=== PATIENT | male | born 1975 | race Caucasian/White ===

== ENCOUNTER 2017-09-24 07:08 | Emergency (ER) | payer OTHER ==
[~2017-09-24] VITALS: Ht 185.4 cm; Wt 121.5 kg
[2017-09-24 07:16] VITALS: BP 132/92; PULSE 116; RESP 18; TEMP 99; O2SAT 96
[2017-09-24] MEDS ORDERED: CLINDAMYCIN PHOS 300 MG/2 ML VIAL IM ONE (07:30)
--- NOTE | 2017-09-24 07:45 | PD ---
HPI Chief Complaint: Bite or Sting Time Seen by Provider: 07:26 Travel History International Travel<30 days: No Contact w/Intl Traveler<30days: No Traveled to known affect area: No History of Present Illness HPI Patient states that while he was playfully interacting with his puppy that dog inadvertently bit his right hand, the dog did not hold onto the bite, mainly affecting his right hand. This is the patient's own dog, who is up-to-date with all the shots. Patient states that he recalls getting a tetanus shot about 3 years ago as well. Patient states that he is able to move all his digits well on that right hand, does not have any tingling sensation or any major limitation to range of motion. Patient does have some slight bleeding from the wound, which seems to stop with just slight pressure placed on it. Patient denies any associated factors such as extremity deformity, pumping bleeding, numbness to digits, or inability to move his fourth and fifth digits in particular. States allergy to penicillin/hives Patient states medical history significant for hypercholesterolemia, hypertension however takes no medications, states that its Fully diet controlled. PFSH Social History Tobacco Use: No Allergies-Medications (Allergen,Severity, Reaction): Coded Allergies: Penicillins (Verified Allergy, Severe, Anaphylaxis, 09/24/17) No Known Allergies (Verified Allergy, Unknown, 09/24/17) Reported Meds & Prescriptions Reported Meds & Active Scripts Active Ultram (Tramadol HCl) 50 Mg Tab 50 Mg PO Q6H PRN Cipro (Ciprofloxacin HCl) 500 Mg Tab 500 Mg PO BID 7 Days Review of Systems General / Constitutional: No: Fever Eyes: No: Visual changes HENT: No: Headaches Cardiovascular: No: Chest Pain or Discomfort Respiratory: No: Shortness of Breath Gastrointestinal: No: Abdominal Pain Genitourinary: No: Dysuria Musculoskeletal: No: Pain Skin: Positive Other (Dog bite) Neurologic: No: Weakness Psychiatric: No: Depression Endocrine: No: Polydipsia Hematologic/Lymphatic: No: Easy Bruising Physical Exam Narrative GENERAL: SKIN: Warm and dry. HEAD: Atraumatic. Normocephalic. EYES: Pupils equal and round. No scleral icterus. No injection or drainage. ENT: No nasal bleeding or discharge. Mucous membranes pink and moist. NECK: Trachea midline. No JVD. CARDIOVASCULAR: Regular rate and rhythm. RESPIRATORY: No accessory muscle use. Clear to auscultation. Breath sounds equal bilaterally. GASTROINTESTINAL: Abdomen soft, non-tender, nondistended. Hepatic and splenic margins not palpable. MUSCULOSKELETAL: Extremities without clubbing, cyanosis, or edema. No obvious deformities. 1.5 cm laceration, oval-shaped, over the lateral dorsum of the hand along the fifth metacarpal base, full range of motion fifth MCP fourth MCP also full range of motion at wrist, full range of motion opposition and abduction and abduction. NEUROLOGICAL: Awake and alert. No obvious cranial nerve deficits. Motor grossly within normal limits. Five out of 5 muscle strength in the arms and legs. Normal speech. PSYCHIATRIC: Appropriate mood and affect; insight and judgment normal. Data Data Last Documented VS Vital Signs Date Time Temp Pulse Resp B/P (MAP) Pulse Ox O2 Delivery O2 Flow Rate FiO2 09/24/17 07:32 16 09/24/17 07:16 99.0 116 132/92 (105) 96 Orders Orders Hand, Complete ([id number]) (09/24/17 ) Wound Care (09/24/17 07:30) Clindamycin Inj (Cleocin Inj) (09/24/17 08:00) Ed Discharge Order (09/24/17 08:48) MDM Medical Decision Making Medical Screen Exam Complete: Yes Emergency Medical Condition: Yes Medical Record Reviewed: Yes Differential Diagnosis Dog bite versus tendon injury versus fracture metacarpal versus retained foreign body Narrative Course X-ray does not show any retained foreign bodies, no fractures, no dislocations of the hand bones. Patient has been providing wound care, and given an antibiotic. Patient will be discharged home on p.o. patient states that he is allergic to penicillin and most likely antibiotic to use would have been Augmentin for dog bite however as a likely substitution will place the patient on Cipro Diagnosis Primary Impression: Status post dog bite Additional Impression: Single wound Patient Instructions: Acute Wound Care (GEN), Animal Bite (ED), General Instructions Scripts Tramadol (Ultram) 50 Mg Tab 50 MG PO Q6H Y for PAIN, #10 TAB 0 Refills Prov: Joce Valdes MD 09/24/17 Ciprofloxacin (Cipro) 500 Mg Tab 500 MG PO BID for Infection for 7 Days, #14 TAB 0 Refills Prov: Joce Valdes MD 09/24/17 Disposition: 01 DISCHARGE HOME Condition: Stable Joce Valdes MD September 24, 2017 07:45
--- NOTE | 2017-09-24 07:49 | RADRPT ---
EXAM DATE/TIME: 09/24/2017 07:35 [facility] COMPARISON: No previous studies available for comparison. INDICATIONS : Dog bite, right medial hand. MEDICAL HISTORY : None. SURGICAL HISTORY : None. ENCOUNTER: Initial ACUITY: 1 day PAIN SCORE: 2/10 LOCATION: Right hand FINDINGS: Three view examination of the right hand demonstrates no dislocation or fracture. There is soft tis hunter swelling at the proximal medial aspect of the hand. No foreign body seen. The carpal bones appear intact. The interphalangeal and metacarpophalangeal joints are intact. Bony mineralization is norm al. CONCLUSION: Mild soft tissue swelling at the proximal medial aspect of the hand. Baldev Olmstead MD on September 24, 2017 at 7:47 Board Certified Radiologist. This report was verified electronically.
[2017-09-24] MEDS ORDERED: CLINDAMYCIN PHOS 600 MG/4 ML VIAL IM ONE (08:00)
[2017-09-24] MEDS ORDERED: CIPR-9 PO (08:06)
[2017-09-24] MEDS ORDERED: TRAM50 PO (08:06)
== END 2017-09-24 09:03 | disposition home or self-care (01) ==
LOC: PHED 07:08
DX: S61.451A Open bite of right hand, initial encounter (principal); E78.00 Pure hypercholesterolemia, unspecified; I10 Essential (primary) hypertension; W54.0XXA Bitten by dog, initial encounter; Z79.899 Other long term (current) drug therapy; Z88.0 Allergy status to penicillin
CPT/HCPCS: 73130; 96372